=== PATIENT | female | born 1980 | race Caucasian/White ===

== ENCOUNTER 2018-06-11 05:40 | Inpatient (IN) | payer OTHER, SELFPAY ==
[2018-06-08 15:03] VITALS: BMI 45.5
[2018-06-11] VITALS (20 sets, daily range): BP systolic 104–133; BP diastolic 57–78; PULSE 89–105; RESP 16–18; TEMP 35.8–36.6; O2SAT 94–99
[2018-06-11] MEDS: Lactated Ringers 1,000 ML 999 ML IV (06:05)
[2018-06-11 06:29] LABS: Absolute Lymphocyte Count 1.79 X10^3/ul (0.83-4.51); Absolute Neutrophil Count 6.8 X10^3/uL (2.0-7.7); Basophil# 0.01 X10^3/uL; Basophil% 0.1 % (0-1); Eosinophil# 0.04 X10^3/uL; Eosinophils% 0.4 % (0-5); Hemoglobin 11.8 g/dl (12.0-15.0); Lymphocyte # 1.79 X10^3/ul (4.0); Lymphocyte % 19.5 % (19-41); Mean Corp Hgb Conc 33.7 g/gl (32-36); Mean Corpuscular Hgb 30.5 pg (27.0-32.0); Mean Corpuscular Volume 90.4 fL (81-99); Mean Platelet Vol. 9.4 fl (6.2-12.0); Monocyte# 0.52 X10^3/uL; Monocyte% 5.7 % (0-10); Platelet Count 154 K/mm3 (150-450); RBC Distribution Width CV 13.2 % (11.6-14.6); RBC Distribution Width SD 42.9 fl (35.1-43.9); Red Blood Count 3.87 M/mm3 (4.2-5.4); White Blood Count 9.2 K/mm3 (4.4-11.0)
[2018-06-11 06:30] LABS: POSITIVE COUNT NO; POSITIVE DIFFERENTIAL NO; POSITIVE MORPHOLOGY NO
[2018-06-11 06:35] LABS: Bedside Glucose 80 mg/dL (70-110)
[2018-06-11] MEDS: Lactated Ringers 1,000 ML 150 ML IV (07:06)
[2018-06-11] MEDS: Sodium Citrate/Citric Acid 30 ML UDC PO (07:07)
[2018-06-11] MEDS: Oxytocin 30 units/NS 500 ml 30 UNITS/500 ML IV.SOLN 167 UNITS IV (07:59)
--- NOTE | 2018-06-11 08:00 | CYST_PTH ---
PATIENT: ZENIA VILLEGAS LOC: [facility] U#:[id number] AGE/SX: 38/F ROOM: WP007 RE06/11/[address]: Dr. Cari Brito MD : 1980 BED: 1 DIS: 06/14/2018 SPEC #: [id number] RECD: 06/11/18 10:41 STATUS: JACQUES RERoro #: [id number] CLAUDINE: 06/11/18 08:[address]: Cari Brito DEPT: SURGICAL PATHOLOGY RECD BY: Lorne Curtis ENTERED: 06/11/18 11:03 SP TYPE: Cyst OTHR DR: Dr. Anastasia Rodgers MD Tissues: OVARIAN CYST Procedures: Decalcification bone/plaque Surgery Specimen Level IV HEADER OPERATION: Not noted PRE-OP DIAGNOSIS: Left ovarian cyst TISSUE SUBMITTED: Left ovarian cyst MICROSCOPIC DIAGNOSIS Left ovarian cyst: Mature cystic teratoma (dermoid cyst). SJ:darren 06/16/18 COMMENT Please make reference to previous specimen ([id number]) right ovarian cyst, oophorectomy with diagnosis of mature cystic teratoma. MICROSCOPIC DESCRIPTION Slides are reviewed. GROSS DESCRIPTION Received in fixative is one container labeled with the patient's name and designated left ovarian cyst. The specimen consists of a partially opened cystic structure measuring 3 cm in diameter. The external surface is smooth and glistening. Extruding from the open end appears to be light taylor-blond hair. The cyst wall varies in thickness from 0.1 to 0.4 cm and focally cuts with a gritty sensation. The specimen is sectioned and totally submitted in two cassettes after decalcification. / AM:darren 06/11/18 TC:1 CPT: 01954, 67963
--- NOTE | 2018-06-11 08:52 | PCM.OB.CSR ---
Delivery Classification: Scheduled Final MICHAEL: 06/17/18 Final MICHAEL Source: US <20 weeks Gestational age: 39 Weeks and 1 Days Indications for : Repeat Elective , - - left ovarian cyst Description of Procedure: The patient was taken to the operating room. She was prepped and draped in the dorsal supine position with a leftward tilt. She had 2 previous scars. A Pfannenstiel skin incision was made approximately 2 cm above the symphysis pubis through her more cephalad incision and carried through to underlying layer fascia with the scalpel. The fascia was very thick and there is evidence of scar tissue. The fascia was incised incised in the midline and extended laterally with the Hudson scissors. The fascia was dissected off the rectus muscles with blunt and sharp dissection. Dissecting the muscle off the fascia took some time because of the previous scarring. The rectus muscles were in the midline and the peritoneum was entered sharply. The peritoneal incision was stretched and the bladder blade was placed. The uterine incision was made in a low transverse fashion with the scalpel and extended superiorly and inferiorly with blunt dissection. The amniotic membranes were ruptured bluntly and clear amniotic fluid returned. The infant's head was brought to the incision in the flexed position and delivered without difficulty. The remainder of the was delivered with gentle traction and fundal pressure in the standard fashion. The mouth and nares were bulb suctioned. The cord was clamped and cut as the was stimulated. Cord clamping was delayed. The infant was handed off to the waiting nursing staff. The placenta was delivered with fundal massage and gentle traction in the standard fashion. The uterus was exteriorized and cleared of all clots and debris. The cervix was dilated with a ring forcep. The uterine incision was closed with #1 Vicryl in a running locked fashion. The incision was examined and was found to be hemostatic. There is a small defect in the anterior uterus from manipulation of the uterus and bringing it through the incision. This was oversewn with an 0 Vicryl [id number] suture. The left ovary was then identified and the cyst was noted. On the the portion of the cyst most distal from the vessels, an incision was made with the Bovie over the cyst. Some yellow thick material and hair was noted. The dermoid cyst was then peeled off the underlying ovarian stroma. The entire cyst was removed in 1 piece. Any bleeding was Bovie cauterized. Some fibrillar was placed in the cyst cavity and pressure was held for 2 minutes and the cyst cavity was closed in that manner and was hemostatic. The uterus was placed back into the peritoneal cavity and hemostasis was again confirmed. It was noted that there were some adhesions of the omentum to the right fallopian tube. These created an opening on both sides of the omental adhesions so the decision was made to take them down. They were taken down with the Bovie without difficulty. The rectus muscles were examined and any bleeding was Bovie cauterized. The parietal peritoneum and rectus muscles were closed en bloc with an 0 Vicryl running suture. The surgical teams outer gloves were then changed. The rectus fascia was examined and any bleeding was Bovie cauterized and the rectus fascia was closed with #1 PDS suture in a running standard fashion. The subcutaneous tissue was examining and any bleeding was Bovie cauterized. The subcutaneous tissue was reapproximated with 3-0 Vicryl suture. It should be noted that some Danielle was placed over the uterine incision, over the rectus muscles and in the subcutaneous tissue. The skin was closed in a subcuticular fashion with Monocryl. I performed the entire procedure with assistance. All sponge, lap, and needle counts were correct. The patient was taken to her room for recovery in a stable condition. Amniotic Membrane Rupture Type: Artificial Amniotic Fluid Description: Clear Placenta Disposition: [facility] Specimen(s) sent to pathology: left ovarian cyst Drain: Gee to straight drain Fluids Replaced: 1000cc Cord Entanglement: Around neck x 1, loose Nuchal Cord Compression: Without compression Cord Vessel Description: 3 Vessels Esitmated Blood Loss (ml): 800 Infant Gender: Male Delayed cord clamping: Yes Pre-op Antibiotic Given: - - ancef 3 gm Complications: None - Admit VTE Documentation VTE Present on Admission: No VTE Mechan Device Prophylaxis: SCD's VTE Pharm Prophylaxis ordered?: Yes
[2018-06-11] MEDS: Senna/Docusate Sodium 1 Tablet PO ×2 (10:34→20:26)
[2018-06-11] MEDS: Escitalopram Oxalate 10 MG Tablet PO (12:20)
--- NOTE | 2018-06-11 12:20 | NURSING ---
Mother extremely agitiated , crying states i just can't take this anymore I'm itching and hot and nauseated and hungry. Patient states did not want clean pad , but did explain i needed to check her bleeding and her dressing patient finally agreeable did get her zofran for nausea and itching and a fan and lowered temp in room. Assisted with repositioning Lexpro given as ordered . Patient finally calmer
[2018-06-11] MEDS: 0.9% Saline Lock 10 ML Syringe IV ×2 (12:21→14:41)
[2018-06-11] MEDS: Ondansetron 4 MG/2 ML Vial IV ×2 (12:21→18:09)
[2018-06-11] MEDS: Ketorolac 30 MG/ML Syringe IV ×2 (14:41→20:26)
[2018-06-11] MEDS: Lactated Ringers 1,000 ML 100 ML IV ×2 (14:42→22:40)
[2018-06-12] MEDS: Ketorolac 30 MG/ML Syringe IV ×4 (02:23→20:28)
[2018-06-12 02:30] VITALS: PULSE 101; RESP 18; O2SAT 94
[2018-06-12 03:45] VITALS: BP 106/65; PULSE 103; RESP 18; TEMP 36.5; O2SAT 94
[2018-06-12] MEDS: Ondansetron ODT 4 MG Tablet PO ×3 (03:48→12:51)
[2018-06-12] MEDS: Acetaminophen 500 MG Tablet 1000 MG PO (03:48)
[2018-06-12 04:01] LABS: Bedside Glucose 118 mg/dL (70-110)
[2018-06-12 06:00] VITALS: PULSE 90; RESP 18; O2SAT 94
[2018-06-12 06:11] LABS: Hematocrit 30.6 % (37-47); Hemoglobin 10.3 g/dl (12.0-15.0); Mean Corp Hgb Conc 33.7 g/gl (32-36); Mean Corpuscular Hgb 31.7 pg (27.0-32.0); Mean Corpuscular Volume 94.2 fL (81-99); Mean Platelet Vol. 9.2 fl (6.2-12.0); Platelet Count 151 K/mm3 (150-450); RBC Distribution Width CV 13.3 % (11.6-14.6); RBC Distribution Width SD 43.5 fl (35.1-43.9); Red Blood Count 3.25 M/mm3 (4.2-5.4); Scan Indicated on CBC? Y/N NO
[2018-06-12 08:00] VITALS: BP 121/73; PULSE 94; RESP 18; TEMP 36.7; O2SAT 93
[2018-06-12] MEDS: 0.9% Saline Lock 10 ML Syringe IV ×3 (08:46→20:28)
[2018-06-12] MEDS: oxyCODONE 5 MG Tablet PO ×4 (09:10→23:56)
--- NOTE | 2018-06-12 10:00 | NURSING ---
Durant cath removed after 10 cc normal saline removed from durant bulb. Viv-care completed. Pt. eager to get these things completed as sons are coming to visit.
--- NOTE | 2018-06-12 11:22 | CASEMGMT ---
See full assessment in baby's chart. SW met w/MOB and FOB in room. MOB reports being painful, MOB and FOB still very engaged in conversation. Parents report supportive grandparents, friends. MOB not observed w/baby, FOB holding baby and very appropriate, baby was crying, FOB soothed baby and baby fell asleep. MOB denies any issues in regard to domestic violence, substance abuse. MOB reports having all needed supplies for baby including a safe place to sleep. MOB plans to breast feed. MOB explains this has been difficult in the past for her, but she is done feeling inadequate for not being able to breast feed. MOB states she really was upset w/herself when she struggled with the first baby. MOB reports having a different attitude now about . She will try but is okay with formula too. Her philosophy is fed is best. verbalizes he supports her. SW also offered support to MOB. SW reviewed w/parents and gave parents information on shaken baby, , counseling, Help Me Grow, support groups for mothers and fathers. SW then spoke w/MOB about depression and anxiety. MOB upfront w/this SW in regard to this. MOB denies wanting to harm self or others, denies wanting to harm the baby. MOB states she really wanted a girl, and is still struggling with this. She also knows this will be here last baby. MOB states for the whole she felt detached. She kept thinking, what if he gets here and I don't want anything to do with him? She states now that he is here however, she is caring for him. She does state she does not feel as bonded to him as the other boys however. She turned to her and said that this all sounds so awful. MOB states she thinks once she is home, and the other boys meet him, it will be better. She states she is still not feeling well and know this is part of it too. FOB states he thinks it is so much better than MOB thought it would be. He states she was so worried about how she would feel once the baby was here. FOB reports he feels she is doing great. She knows it stems from having a close relationship w/her grandmother who has , and she does not have a relationship w/her mother like this. She also states she has no sisters. She states that she does not feel like this wanting a girl will go away. SW offered support to pt. MOB states she has spoken to Dr. Brito and just started Firmafon and is hopeful it will help. MOB states she knows she is depressed. We talked about counseling, MOB states they have a high deductible and so would have to pay out of pocket. MOB called a couple of places and the cost was $100-$150/hour. SW gave MOB a list of agencies in the area and encouraged her to call some other places, as there are many places that would cost less. SW emphasized how important going to counseling would be. MOB states she does not want to talk to a stranger about her problems however,and if she does not get the right person would have to start over. SW encouraged her to call a couple of places and let them know what she needs, and hopefully they could connect her with an appropriate counselor. SW also gently pointed out that MOB was very honest w/this SW who is also a stranger. MOB acknowledged this. SW reviewed signs of w/both MOB and FOB, and circled the number for [facility]--explained that they have a 24 hour hotline if needed. At this time, no further needs anticipated. MOB considering looking into counseling, information reviewed on and counseling strongly encouraged. SW did not see MOB w/baby but she and FOB report she is managing well to care for baby. FOB observed very appropriate with baby. SW remains available should any additional needs arise. RICK Mendez, SHERIFF
--- NOTE | 2018-06-12 11:25 | CASEMGMT ---
POA form in echart . RICK Mendez, WAREHOUSE PULLER
[2018-06-12] MEDS: Escitalopram Oxalate 10 MG Tablet PO (11:30)
[2018-06-12] MEDS: Senna/Docusate Sodium 1 Tablet PO ×2 (11:30→20:28)
[2018-06-12] MEDS: Enoxaparin 40 MG/0.4 ML Syringe SC (11:36)
--- NOTE | 2018-06-12 11:56 | PCM.PN.OB ---
Subjective: Pain is better controlled at this time. Overall doing better. - Physical Exam General: Alert, Oriented x3 Abdomen: Soft, Non Tender, Non-Distended - ff mid & below umbilicus; incision - dressing saturated with dark blood - mostly dried Extremities: No Calf Tenderness Vital Signs Temp Pulse Resp BP Pulse Ox 97.7 F L 90 18 106/65 94 06/12/18 03:45 06/12/18 06:00 06/12/18 06:00 06/12/18 03:45 06/12/18 06:00 Oxygen Delivery Method Room Air Weight: 282 lb Body Mass Index (BMI) 45.5 Intake and Output for Last 24 Hours 06/10/18 06/11/18 06/12/18 23:59 23:59 23:59 Intake Total 5397 / 5397 Output Total 1875 / 1875 Balance 3522 / 3522 Laboratory Tests Past 24 Hrs 06/12/18 06:05 WBC 9.0 RBC 3.25 L Hgb 10.3 L Hct 30.6 L MCV 94.2 MCH 31.7 MCHC 33.7 RDW 13.3 RDW Differential 43.5 Plt Count 151 MPV 9.2 POC Glucose 06/12/18 03:57 POC Glucose 118 H Medical Necessity - Tobacco Use Smoking Status: Former smoker Assessment/Plan POD#1 Heme - HDS, cbc reviewed Incision - will replace bandage after patient showers - durant removed ID - AF, no signs infection Routine care
[2018-06-12 15:50] VITALS: BP 124/76; PULSE 93; RESP 18; TEMP 36.2; O2SAT 94
--- NOTE | 2018-06-12 15:52 | CASEMGMT ---
SW received a call from RN caring for MOB. She states that baby could not have a circumcision here due to a complication and will need to go as an outpt to a urologist in [place]. When ANDRES was informed, she became visibly upset as per RN, started yelling at the staff at the hospital. ANDRES also had not as of then gotten out of bed, and as per RN was verbalizing multiple frustrations w/the RN, including RN not waking her in time for her to prepare for her friend's visit. RN concerned in regard to MOB's emotional state, explains that everything for pt at this time seems to be an issue or difficulty for her. RN explains she cannot seem to make a decision and is turning to her to help her, even with small decisions. SW did attempt to go back to speak w/pt however her friend is visiting and RN plans to go in and attempt to get pt into the shower. Given this information and what MOB shared w/this SW earlier in regard to her worry about bonding with this new baby, SW called [facility], spoke w/Lynn. JULIANNA explained to Lynn concern about MOB's depression, her being concerned about bonding with the baby, and her now emotional difficulty at present. Lynn reviewed the case w/her supervisor offset plate preparation, at this moment there is not enough to screen the case in. Lynn states however if there is any additional information to call back, she will be biotech production specialist all weekend. JULIANNA let battery recharger know if anything else comes up to call the [facility] and they can be connected to the biotech production specialist [facility] worker. If ANDRES is still here Thursday, SW can follow up on Thursday as needed. RICK Mendez, BAKED GOODS STOCK CLERK
--- NOTE | 2018-06-12 17:06 | PCM.PN.BLA ---
Progress Note S: Went to assess patient with nurses during dressing change O: Incision with superficial opening on right side, gently probed with sterile swab majority of incision healing well. no active bleeding A&P: Apply pressure dressing & will re-assess in the am
--- NOTE | 2018-06-12 20:27 | NURSING ---
This note to cover events from my shift with Liana for 7a-7p on 06/12/18. Liana was sleeping this morning when I peeked into her room. When I went in to assess her later, there had been several people in her room for the morning (this being at 0830). She was a little short, but mostly agreeable. She was moreso annoyed when I had her sit up to listen to her lungs, and got very annoyed and verbal when I removed her binder to assess her abd. and fundus. The binder had jolted open quickly at the end and had caused pain - she started yelling toward her , somewhat acting like this nurse was not present in the room. I gave the pt. the option to wait for a little to have fundus checked, pt. unable to make up her mind. Gave pt. the time to wait and let meds kick in. Discussed with pt. concern over lack of movement from bed due to hypoactive bowel sounds throughout, lack of passing gas, inability to take deep breaths while in bed. Pt. increasingly upset, states she will get out of bed, she always has, but she isn't getting up with catheter and it hasn't worked yet to get up. When back to room, pt. congenial, apologetic about being upset earlier. States she wants to get up and move and she wants to do good. Her family is coming soon, and as soon as they are gone, she will get up to shower. Pt. appears eager to shower. Does well moving in bed for jon-care and glad to get catheter out. Eager to see boys as they were here to visit. When I went back to the room as her boys were leaving to give her some meds, she was visibly irritated, saying that it had been a revolving door, but quickly settled, states It's just been a revolving door. I had to make my family leave because I need to feed the baby and I haven't been able to eat yet. Assisted pt. with getting awake and on breast, cont. to be lethargic, difficult to get to feed. Mother requested formula to help to latch - given formula as requested. Madison wants to drizzle on breast to get infant to latch. Pt. eager to get into [facility] for circ to be done. Dr. Mcfarland had been in room to see dressing - wants dressing changed after shower. Pt. upset about this as she had trouble with tape blisters with last , and ended up with wound infection after. Pt. very nervous about dressing change, attempt to calm her with this. Also told pt. that we wanted to check some more blood sugars before meals as her fasting blood sugar was elevated. Pt. upset about this, explaining away blood sugar. Reminded pt. that this is to give her best care and best care for healing as blood sugar can affect this. back to room shortly after going for circ as unable to do circ d/t concerns over penis formation. Want infant seen by urology in [place]. Pt. very angry about this when nursing back in room. Nursing in to give oxycodone for pain, and asked pt. to rate pain level. Pt. responds with Pain level or piss level?! I'm pissed! Sat with pt. for a while and listened to pt's frustrations about this. Pt. had been very upset with nsy and computer specialist while in room. Mother refuses for ped. to come back in room for shift. Continuously going back to this point for rest of shift of how horrible this is, why can't they do it, she can't have to take her baby to [place] in the winter because he'll get sick, it has to be done next week because that is all that Ben gets off work, how is she supposed to do this? Her care is horrible, this is an awful experience. We don't care about her and what she wants.Pt. states she wants to go home. When I ask her about this further, she states she is just venting but I may change my mind. Pt. medicated, and when nurse went back into room to see about getting pt. up to shower as agreed, pt. had fallen asleep. When I woke pt., she grabbed her phone before she could answer about whether or not she could shower. Pt. then went into a tirade about how she shouldn't have fallen asleep because now her friend will be here and I expected her to get up. She started shouting at her , telling Ben to make up his mind for her, what was she supposed to do? She couldn't make her friend wait! She couldn't get ready, she couldn't tell her not to come. I offered to just change the dressing and do the shower later, pt. was still upset about this and kept asking Ben questions about what she should do. I offered to let pt. have 30 min with her friend, and then be back to change the dressing as I was concerned over her dressing and really felt that it needed to be changed due to being saturated. Pt. still appears very upset by this, cont. to ignore nurse in room and yell to about the dressing, the shower, and the circumcision not going well, getting tearful. I told pt. that I would be back in 30 min to change her dressing. Dr. Mcfarland notified of inability to change dressing thus far in shift (at this point, 1515). Dr. Mcfarland back to room to tell pt. that we would be changing dressing in next 10-15 min. Pt. seemed agreeable to this, but also had friend in room. When nursing back to room, pt. had had friend bottle feed without calling nursing for pre-feed BGT as requested. Pt. got angry and said Well, he was crying and my friend offered and I didn't think he should have to wait. Once pt. started getting up and moving for shower, she apologized for moving slowly and pt. was reassured that she could take her time moving. She toileted and showered on her own, doing well with this. Seemingly in good spirits until we brought up the dressing again. As I called for another nurse to come assist, she became more and more nervous and was stalling getting into bed. Dr. Mcfarland came into room to check incision before leaving the floor. Pt. became tearful started getting short of breath, stating that she was feeling ganged up on with all of us in the room, and why did we all have to be there just to change the dressing. Dr. Mcfarland left to try to make the pt. feel more comfortable. Once the old Mepilex Silver was off, there was noted to be an open area to incision on pt's ride side, appx.4 cm in length. Pt. tearful, yelling, disagreeable, yelling that we promised it would be short as we waited for Dr. Mcfarland to come check incision. Pt. continued to yell and cry as Dr. Mcfarland assessed incision, and throughout application of abd. dressings x2 to abd. with paper tape. Pt. yelling, saying she wants to leave, can't wait to get out of here, and that she felt deceived (as this nurse had told her it would be quick). To put 5 lb weight to site, and pt. angry about this, stating we aren't going to do this. Discussed with pt. that she has the right to refuse any treatment. Pt. unable to decide. Weight taken to room, and pt. states we can try it and then states we can leave it for a while once placed. Offered pain meds and juice to pt., and she became more agreeable with this. Pt. resting again when in room at 1855 with eyes closed, not disturbed. When this nurse was charting after shift, patient had walked down the stone and called for this nurse by name. She started talking about the day again. About her concerns over her incision and about whether or not she will get an infection again. She also started talking again about circumcision and about concerns over that - over timing for circ related to deductible and to anesthesia for . Pt. tearful at times, stating I'm really not a mean person. I'm really not! If you met me outside of here, I'm not a mean person. I reassured the patient that I didn't think that she was mean, but that I was worried about her and concerned about her and that I wanted her to get better and things go well for her. Cost of deductible came up several times over the day - cost had been discussed when talking to her about seeing a counselor for her anxiety and then also in regards to care for circ. This came up again in the hallway when she came down and talked to me again. I encouraged her to go back to the room and enjoy her friend coming and love on Max, and she stated, tearfully I'm kind of having trouble with that. I told her that I knew that, but that she should try and get some cuddles in, because he could be her next cuddle latosha. I observed her holding the today while she was with one feed, and for a period of time after coming back from trying to do the circ, and otherwise, the had been in Ben's arms. I did observe her saying your daddy to the a couple of times from across the room as she was talking to infant.
[2018-06-12 20:30] VITALS: BP 129/77; PULSE 95; RESP 16; TEMP 36.3; O2SAT 94
[2018-06-13 00:31] LABS: Bedside Glucose 92 mg/dL (70-110)
[2018-06-13 01:15] VITALS: BP 113/72; PULSE 88; RESP 15; TEMP 36.3; O2SAT 96
[2018-06-13] MEDS: 0.9% Saline Lock 10 ML Syringe IV (02:42)
[2018-06-13] MEDS: Ketorolac 30 MG/ML Syringe IV ×2 (02:42→08:28)
--- NOTE | 2018-06-13 03:15 | NURSING ---
Taking over pt care at this time.
[2018-06-13] MEDS: oxyCODONE 5 MG Tablet PO ×4 (04:07→20:06)
[2018-06-13] MEDS: Enoxaparin 40 MG/0.4 ML Syringe SC (06:08)
[2018-06-13 06:21] LABS: Bedside Glucose 84 mg/dL (70-110)
[2018-06-13 08:15] VITALS: BP 127/74; PULSE 91; RESP 16; TEMP 36.6; O2SAT 94
--- NOTE | 2018-06-13 08:19 | PCM.PN.OB ---
Subjective: Pain controlled. She's doing better this am. - Physical Exam General: Alert, Oriented x3 Abdomen: Soft, Non Tender, Non-Distended - ff mid & below umb; incision - mid & left side incision well healded, right side with stable small opening, probed gently with sterile swab, about 1cm deep, no tracking. kerlix placed in the incision and new dressing placed. Vital Signs Temp Pulse Resp BP Pulse Ox 97.4 F L 88 15 113/72 96 06/13/18 01:15 06/13/18 01:15 06/13/18 01:15 06/13/18 01:15 06/13/18 01:15 Oxygen Delivery Method Room Air Weight: 282 lb Body Mass Index (BMI) 45.5 Intake and Output for Last 24 Hours 06/11/18 06/12/18 06/13/18 23:59 23:59 23:59 Intake Total 5397 / 5397 1202 / 1202 Output Total 1875 / 1875 2100 / 2100 Balance 3522 / 3522 -898 / -898 POC Glucose 06/13/18 06/13/18 06:05 00:03 POC Glucose 84 92 Medical Necessity - Tobacco Use Smoking Status: Former smoker Assessment/Plan POD#2 Routine care Incision - stable small opening, packed with kerlix. Plan for bid dressing & packing changes.
[2018-06-13] MEDS: Escitalopram Oxalate 10 MG Tablet PO (10:55)
[2018-06-13 14:50] VITALS: BP 114/74; PULSE 81; RESP 16; TEMP 37; O2SAT 95
[2018-06-13] MEDS: Naproxen 250 MG Tablet PO ×2 (15:21→23:25)
--- NOTE | 2018-06-13 19:15 | NURSING ---
Dr. Brito on unit to evaluate patient. Steri strips applied to low transverse abdominal incision wound per Dr. Brito. ABD pad placed over top of steri strips. Dr. Brito plans to be in tomorrow to evaluate patient.
[2018-06-13 19:35] VITALS: BP 123/79; PULSE 79; RESP 18; TEMP 36.8; O2SAT 96
[2018-06-13] MEDS: Senna/Docusate Sodium 1 Tablet PO (21:53)
[2018-06-14] MEDS: oxyCODONE 5 MG Tablet PO ×4 (00:11→16:43)
[2018-06-14 02:15] VITALS: BP 134/77; PULSE 77; RESP 16; TEMP 36.9
[2018-06-14] MEDS: Enoxaparin 40 MG/0.4 ML Syringe SC (06:23)
--- NOTE | 2018-06-14 06:49 | NURSING ---
Liana voiced disappointment at having 4th boy. Is sad the she won't be able to teach a daughter how to twirl a baton like she did or shop for prom and wedding dresses in the future. Is excited that baby looks like her youngest son. Support given.
[2018-06-14] MEDS: Naproxen 250 MG Tablet PO (07:57)
[2018-06-14 08:00] VITALS: BP 132/89; PULSE 80; RESP 16; TEMP 36.5; O2SAT 95
--- NOTE | 2018-06-14 08:20 | NURSING ---
Assessed surgical incision. Right side of incision was reinforced with steri-strips by Dr. Brito. 4 of the 7 steri-strips are no longer intact due to old drainage. An absorbent pad had been placed over site between the skin fold. A small amount of old serous drainage noted. A mild odor is noted. No new drainage visualized. Incision appears approximated beneath steri-strips. No redness or swelling around site.
--- NOTE | 2018-06-14 08:41 | PN.OBGYN_ITS ---
Subjective: Pain well controlled, average lochia. Still with some anxiety but feeling better overall. is supportive. Breast-feeding is going well and she feels her milk is coming in - Physical Exam General: Alert, Cooperative, No apparent distress Abdomen: Soft, Non-Distended, Tender - Appropriately Extremities: Edema - 1+ Skin: Incision - Some moderate serous drainage overnight. Steri-Strips placed yesterday were mostly coming off. Wound edges appear slightly more reapproximated. There is no surrounding area edema. There is no purulent discharge Vital Signs Temp Pulse Resp BP Pulse Ox 97.7 F L 80 16 132/89 H 95 06/14/18 08:00 06/14/18 08:00 06/14/18 08:00 06/14/18 08:00 06/14/18 08:00 Oxygen Delivery Method Room Air Weight: 127.913 kg Body Mass Index (BMI) 45.5 Intake and Output for Last 24 Hours 06/12/18 06/13/18 06/14/18 23:59 23:59 23:59 Intake Total 1202 / 1202 Output Total 2100 / 2100 400 / 400 Balance -898 / -898 -400 / -400 Medical Necessity - Tobacco Use Smoking Status: Former smoker Assessment/Plan Postoperative day #3 status post repeat section and left ovarian cystectomy Status post wound seroma with opening of the right side of the incision superficially. Will have wound nurse see the patient today to see if she might be a good candidate for a temporary wound VAC. If not, I will replace Steri- Strips and have the patient follow-up in my office in 2 days. Patient is agreement with plan. Anxiety-patient is on Lexapro. She has good family support. I discussed with her I will give her low-dose Ativan for as needed use over the next 2 weeks. Likely discharge home later today Infant is breast-feeding and doing well
[2018-06-14] MEDS: Escitalopram Oxalate 10 MG Tablet PO (10:30)
[2018-06-14] MEDS: Senna/Docusate Sodium 1 Tablet PO (10:30)
--- NOTE | 2018-06-14 13:20 | CASEMGMT ---
Social Work Labor and Delivery Unit Summary: Followed up with mother of baby/patient and Ben today, as outreach and education social worker on Thursday was unable to get back into see mother of baby (MOB) a second time on Thursday. Chart reviewed. Noted documentation to this point. Spoke with Catina MILES who reports there have been no issues observed with MOB this shift. Met with MOB and FOB in room. Introduced to self and role, reintroduced MOB that this short story writer met with MOB during last delivery visit. Explored with MOB how MOB has been doing since Thursday, broaching that this short story writer heard MOB had a hard time after finding out about inability to complete circumcision at [facility]. Also addressed how MOB is feeling about the baby. MOB reports that Thursday was a bad day in general. MOB reports to be the type of person who does better having a couple of hours of sleep, rather than an hour and here an there. MOB reports was feeling exhausted, discussed stress about the baby's circumcision, stress with having to have wound checked so many times, feeling uncomfortable. MOB discussed that does not get along with every personality, and that has connected with some staff better than others. MOB reports that things started to feel more settled for MOB Thursday evening and MOB has been able to relax a bit more, got a little sleep, but still feeling tired. MOB reports desire to go home, see other kids, get into a routine and sleep in own bed. MOB reports to have feelings for baby Max, to like the baby, and that feels able to care for the baby. MOB acknowledges that connection with this baby has felt different than with other babies, but that does like this baby. SHAYLEE spoke up that he feels MOB is doing well right now, is adjusting to this baby, and that since Thursday evening MOB has been doing better overall. MOB and FOB report that social work has already provided MOB with some resources for depression and counseling options. This short story writer educated MOB to online support through [employer], which is free, not counseling, and MOB doesn't have to leave the home. Let father of baby know that fathers can also develop depression, that there is a monthly support for dads through the same website. Encouraged MOB to consider this support if nothing else, as this short story writer noted in previous documentation that financial worry about copays as well as the idea of counseling itself are identified barriers for MOB. MOB and FOB deny needs for home going. Ben will be home with MOB for this week as MOB adjusts to new baby. Assessment: MOB agreeable to have social work revisit. Initially MOB with short answers but as time went on MOB talked more and talked about perceived stressors in regards to emotionality over the weekend. MOB with poor eye contact at first, looking at baby, the wall and FOB rather than at this short story writer. However, by the end of the conversation eye contact improved and more direct. MOB matter of fact attitude when talking about how the weekend went, but reports feeling things are improving, especially since baby was able to get the circumcision at [facility]. MOB held baby for the entirety of social work visit, had baby to breast for feeding, then baby to chest doing skin to skin. MOB adjusted baby a few times, enfolding baby in arms, rubbing baby's back, kissed baby's head and also talked in a quiet and gentle manner to the baby. Observed MOB to have appropriate interactions with the baby. MOB also talked about the older children being excited for the baby. FOB identifies thought that MOB is caring for the baby and doing well with the baby. Plan: MOB and baby to home today, with support of FOB. MOB has family locally who can help of MOB asks. MOB has resources for depression, both local resources and online supports. -RICK Jeong, [employer]
[2018-06-14 14:00] VITALS: BP 108/74; PULSE 76; RESP 16; TEMP 36.8; O2SAT 96
--- NOTE | 2018-06-14 14:25 | NURSING ---
Wound nurse, Maira Gr is not here today. Patient is to call her in the morning to be seen tomorrow renetta on an outpatient basis. Patient given phone number with discharge. Dr. Brito notified. She gave telephone order to discharge patient home. She wants additional steri-strips placed on incision prior to discharge by primary nurse. She would like to see patient in her office on Thursday. Patient is to send Dr. Brito a My Chart message with when her flower maker appointment is on Thursday and she will work in her appointment around her baby's appointment. Patient notified.
[2018-06-17 10:50] LABS: Pathology Specimen OB SEE PATHOLOGY REPORT
--- NOTE | 2018-06-17 15:33 | PCM.DC.SUM ---
Discharge Date and Diagnosis Date of Admission: 06/11/18 Date of Discharge: 06/14/18 Hospital Course and Treatment Consultations 06/14/18 08:38 Consult: Onc/Wound/channel development director Routine Comment: Reason for Consult:: c-s wound seroma that opened POD#2, she is POD#3 today Comments:: call Dr. Brito [phone] after eval Operations: - - Repeat low transverse section Via Pfannenstiel skin incision with left ovarian cystectomy. Procedures: None Summary of Care Provided: The patient is a 38-year-old high risk multigravida female presented at 39 weeks for repeat section and left ovarian cystectomy. Patient had a known left ovarian dermoid cyst. Her was complicated to date by maternal obesity with BMI of 45. She had a history of 3 previous sections. She is of advanced maternal age. Her and ovarian cystectomy were performed without difficulty. By postoperative day #3 she was ambulating, urinating tolerating regular diet without difficulty. It was noted on postoperative day #2 that she had a small wound seroma on the incision that opened up the superficial part of her wound. It was closed with Steri-Strips and by postoperative day #3 appeared to be closing on its own and there is no evidence of infection. She was discharged home with routine instructions and to follow-up in my office in 2 days or as needed for a wound check. She had some mild acute blood loss anemia consistent with blood loss from the surgery. She was discharged home with routine instructions and prescriptions.] - Physical Exam Vital Signs Temp Pulse Resp BP Pulse Ox 98.2 F 76 16 108/74 96 06/14/18 14:00 06/14/18 14:00 06/14/18 14:00 06/14/18 14:00 06/14/18 14:00 Oxygen Delivery Method Room Air Weight: 127.913 kg Body Mass Index (BMI) 45.5 Home Medications: Medications to take at Discharge Vits [Prenatabs FA ] 1 tablet PO DAILY 03/08/14 Lexapro 10 mg PO DAILY 06/08/18 Ibuprofen [Motrin] 800 mg PO TID PRN PRN #60 tablet 06/14/18 Lorazepam [Ativan] 0.25 mg PO TID PRN 10 Days #20 tablet 06/14/18 Oxycodone HCl/Acetaminophen [Percocet 5-325] 1 - 2 tablet PO Q8 PRN 7 Days #28 tablet 06/14/18 Following Prescrptions Were Given to Patient: Ibuprofen [Motrin] 800 mg PO TID PRN PRN #60 tablet PRN Reason: Pain Oxycodone HCl/Acetaminophen [Percocet 5-325] 1 - 2 tablet PO Q8 PRN 7 Days #28 tablet PRN Reason: Moderate-Severe pain Lorazepam [Ativan] 0.25 mg PO TID PRN 10 Days #20 tablet PRN Reason: Anxiety Primary Care Physician: Anastasia Rodgers MD [Primary Care Provider] - Medical Necessity - Tobacco Use Smoking Status: Former smoker Meaningful Use Info Meaningful Use Diagnoses (Choose all that apply): None applicable
== END 2018-06-14 17:35 | disposition home or self-care (01) | DRG 787 ==
PROVIDERS: Admitting Provider Obstetrics & Gynecology; Family Provider Internal Medicine; PCP Internal Medicine; Visit Provider Obstetrics & Gynecology
PROC: 10D00Z1 Extraction of Products of Conception, Low, Open Approach (ICD-10-PCS; CPT 59514; principal; 2018-06-11 07:15)
DX: O34.211 Maternal care for low transverse scar from previous cesarean delivery (principal); L76.34 Postprocedural seroma of skin and subcutaneous tissue following other procedure; O99.73 Diseases of the skin and subcutaneous tissue complicating the puerperium; O99.89 Other specified diseases and conditions complicating pregnancy, childbirth and the puerperium; D27.1 Benign neoplasm of left ovary; O24.420 Gestational diabetes mellitus in childbirth, diet controlled; O69.81X0 Labor and delivery complicated by cord around neck, without compression, not applicable or unspecified; O99.344 Other mental disorders complicating childbirth; F41.9 Anxiety disorder, unspecified; O99.214 Obesity complicating childbirth; Z3A.39 39 weeks gestation of pregnancy; Z37.0 Single live birth; Z87.891 Personal history of nicotine dependence; Z87.59 Personal history of other complications of pregnancy, childbirth and the puerperium
CPT/HCPCS: 82962; 85025; 85027; 86850; 86900; 88305; 88311; 99218; J7120; A4216; G0378; J2405; J3490